=== PATIENT | male | born 1965 | race Caucasian/White ===

== ENCOUNTER 2021-12-07 16:34 | Outpatient (CLI) | payer BC, SELFPAY ==
[2021-12-07 16:30] VITALS: BP 141/84; PULSE 56; RESP 16; TEMP 36.8; O2SAT 100; BMI 25.4
[2021-12-07] MEDS: 0.9% Saline Lock 10 ML Syringe IV (16:52)
[2021-12-07 17:16] VITALS: BP 139/83; PULSE 64; RESP 16; TEMP 37; O2SAT 100
[2021-12-07 18:12] VITALS: BP 136/87; PULSE 58; RESP 16; TEMP 36.8; O2SAT 99
== END 2021-12-07 23:59 | disposition home or self-care (01) ==
LOC: MS3OUT 16:39 → MS3 16:39
PROVIDERS: Visit Provider Nurse Practitioner Adult Health
DX: Z23 Encounter for immunization (principal); U07.1 COVID-19; E66.9 Obesity, unspecified; Z68.25 Body mass index [BMI] 25.0-25.9, adult
CPT/HCPCS: J7050; M0247; A4216; Q0247

== ENCOUNTER → 2024-02-21 | Outpatient (CLI) | payer BC, SELFPAY ==
--- NOTE | 2024-02-21 06:44 | MRI_ITS ---
STUDY: MRI LEFT ELBOW REASON FOR EXAM: Male, 58 years old. SURGICAL PLANNING DISTAL BICEP RUPTURE TECHNIQUE: Standardized fat and water weighted pulse sequences were obtained in all 3 orthogonal planes. COMPARISON: None. FINDINGS: Normal radio-capitellum articulation. Normal radial collateral ligamentous complex. Normal common extensor tendon. Normal ulnotrochlear articulation. Normal ulnar collateral ligamentous complex. Normal common flexor tendon. The cubital tunnel is normal, with a normal ulnar nerve. There is a complete tear/rupture of the distal biceps tendon with 6 cm proximal tendon retraction (sagittal T2 series 7 images 21-25). Normal brachialis musculotendinous insertion. Normal triceps tendon and teno-osseous insertion. Normal olecranon process. The visualized distal humerus, proximal radius, and ulna are normal. The visualized muscles of the distal arm and proximal forearm are normal. There is subcutaneous soft tissue edema along the medial aspect of the elbow. MRI/Upper Ext Joint Only(Routine) IMPRESSION: Complete tear/rupture of the distal biceps tendon with 6 cm proximal tendon retraction. Subcutaneous soft tissue edema along the medial aspect of the elbow. Electronically Signed: Steve Bro MD at 9:05 EDT ,
[2024-02-21 07:31] LABS: Hematocrit 43.5 % (40-54); Hemoglobin 14.5 g/dL (13.0-16.5); Mean Corp Hgb Conc 33.3 g/dL (32-36); Mean Corpuscular Hgb 32.1 pg (27.0-32.0); Mean Corpuscular Volume 96.2 fL (80-94); Mean Platelet Vol. 10.1 fl (6.2-12.0); Platelet Count 347 K/mm3 (150-450); RBC Distribution Width CV 12.3 % (11.6-14.6); RBC Distribution Width SD 43.8 fl (35.1-43.9); Red Blood Count 4.52 M/mm3 (4.6-6.2); White Blood Count 6.1 K/mm3 (4.4-11.0)
--- NOTE | 2024-02-21 07:37 | EKG12_ITS ---
Test Reason : PRE-OP Blood Pressure : / mmHG Vent. Rate : 045 BPM Atrial Rate : 045 BPM P-R Int : 172 ms QRS Dur : 090 ms QT Int : 446 ms P-R-T Axes : 062 010 026 degrees QTc Int : 385 ms Sinus bradycardia Otherwise normal ECG Confirmed by PATRICIA RO, DARON ([id number]), international editorial producer VASU FERNÁNDEZ [id number]) on 02/22/2024 6:40:55 AM Referred By: Roland Chapman Confirmed By:DARON GOMEZ MD
[2024-02-21 08:03] LABS: Anion Gap 4 (5-15); BUN 17 mg/dL (7-18); BUN/Creat Ratio 17.4 RATIO (10-20); Calcium,Total 9.2 mg/dL (8.5-10.1); Chloride 106 mmol/L (98-107); Creatinine, Serum 0.98 mg/dL (0.70-1.30); EST Glomerular Filtration Rate 83 mL/min (>60); Est Glom Filt Rate - Afr Amer 100 mL/min (>60); Glucose 98 mg/dL (74-106); Potassium 4.2 mmol/L (3.5-5.1); Sodium Level 139 mmol/L (136-145)
== END | disposition home or self-care (01) ==
PROVIDERS: Referring Provider Physician Assistant Surgical; Visit Provider Physician Assistant Surgical
DX: Z01.818 Encounter for other preprocedural examination (principal); Z01.810 Encounter for preprocedural cardiovascular examination
CPT/HCPCS: 36415; 73221; 80048; 85027; 93005